=== PATIENT | male | born 1985 | race African-American/Black ===

== ENCOUNTER 2017-11-07 08:45 | Emergency (ER) | payer SELFPAY ==
[2017-11-07 09:41] LABS: #Eosinphils 0.2 thou/uL (0.0-0.7); #Lymphocytes 1.8 thou/uL (1.20-3.40); #Monocytes 0.4 thou/uL (0.11-0.59); #Neutrophils 1.4 thou/uL (1.40-6.50); %Basophils 0.7 % (0.0-1.0); %Eosinophils 5.2 % (0.0-10.0); %Lymphocytes 47.3 % (21.0-51.0); %Monocytes 10.4 % (0.0-10.0); %Neutrophils 36.4 % (42.0-75.0); Hemoglobin 16.1 g/dL (14.0-18.0); Mean Corpuscular HGB CONC 33.8 g/dL (32.0-36.0); Mean Corpuscular Hemoglobin 28.1 pg (27.0-31.0); Mean Platelet Volume 9.1 fL (7.4-10.4); Platelet Count 188 thou/uL (130-400); RBC Distribution Width 12.3 % (11.5-14.5); Red Blood Cell (RBC) Count 5.72 mill/uL (4.70-6.10); White Blood Cell (WBC) Count 3.8 thou/uL (4.8-10.8)
[2017-11-07 10:06] LABS: ALT (SGPT) 29 U/L (8-55); AST (SGOT) 34 U/L (5-34); Albumin 4.4 g/dL (3.5-5.0); Alkaline Phosphatase 63 U/L (40-150); Anion Gap 11 mmol/L (10-20); BUN (Urea Nitrogen) 9 mg/dL (8.9-20.6); CK (CPK) 1685 U/L (30-200); Calc. Creatinine Clearance 0 mL/min (70-130); Calcium 9.5 mg/dL (7.8-10.44); Carbon Dioxide 27 mmol/L (22-29); Chloride 104 mmol/L (98-107); Estimated GFR-MDRD Greater than 90; Globulin 2.9 g/dL (2.4-3.5); Glucose 97 mg/dL (70-105); Potassium 4.4 mmol/L (3.5-5.1); Protein, Total 7.3 g/dL (6.0-8.3); Sodium 138 mmol/L (136-145)
[2017-11-07 10:10] LABS: CKMB 4.1 ng/mL (0-6.6); Troponin I Less than 0.010 ng/mL (< 0.028)
--- NOTE | 2017-11-07 10:26 | CT ---
CT HEAD WITHOUT CONTRAST: Date: 11/07/17 Multiple axial tomograms obtained through the head without IV enhancement. INDICATION: Right-sided sensory deficit. FINDINGS: Ventricles have normal size and position. No evidence of intracranial mass, hemorrhage, edema, or inf arct. Visualized sinuses and mastoids are well aerated. IMPRESSION: No acute process identified. POS: [facility]
--- NOTE | 2017-11-07 12:35 | CT ---
CHEST CT ANGIOGRAM WITH 3D RENDERING ABDOMEN CT SCAN WITH 3D RENDERING: Date: 11/07/17 HISTORY: 32-year-old male with history of chest pain and neurologic deficits. FINDINGS: No evidence for aortic aneurysm or dissection. The central pulmonary arteries are free of thrombus. N o mediastinal mass or adenopathy. No pulmonary parenchymal process. No pleural effusion or pericardia l effusion. The abdominal aorta demonstrates no evidence for aneurysm or dissection. The celiac, supe rior mesenteric artery, renal arteries, and inferior mesenteric arteries are unremarkable. Normal viji earing appendix. No renal calculi or acute obstruction, or other significant acute process in the abdomen. There are status post cholecystectomy changes with some pneumobilia. IMPRESSION: Unremarkable CT angiogram chest and abdomen. No evidence for aortic dissection or aortic aneurysm. St atus post cholecystectomy with some pneumobilia. POS: [facility]
[2017-11-07 13:44] LABS: Troponin I 0.016 ng/mL (< 0.028)
[2017-11-07 13:53] LABS: Bilirubin Negative (Negative); Blood, Urine Negative (Negative); Clarity CLEAR (Clear); Glucose, Urine (Dipstick) Negative (Negative); Leukocyte Negative (Negative); Nitrite Negative (Negative); Protein, Urine (Dipstick) Negative (Neg-Trace); Urobilinogen 0.2 mg/dL (0.2-1.0)
[2017-11-07 14:03] LABS: Specific Gravity, Urine 1.056 (1.002-1.036)
[2017-11-07 14:07] LABS: Amphetamine Not Detected (NotDetected); Barbiturates Screen Not Detected (NotDetected); Benzodiazepine Screen Not Detected (NotDetected); Cocaine Metabolite Screen Not Detected (NotDetected); Medtox Control Line Valid? VALID (VALID); Medtox Reader # READER 1; Methadone Not Detected (NotDetected); Methamphetamine Not Detected (NotDetected); Opiate Screen Not Detected (NotDetected); Oxycodone Screen Not Detected (NotDetected); Phencyclidine (PCP) Not Detected (NotDetected); THC/Cannabinoid Screen Not Detected (NotDetected); Tricyclic Screen Not Detected (NotDetected)
[2017-11-07] MEDS ORDERED: ISOVUE-370 76%-LOCM 1 ML ONE (14:24)
== END 2017-11-07 14:20 | disposition home or self-care (01) ==
LOC: ERS 08:45
DX: R53.1 Weakness (principal); F32.9 Major depressive disorder, single episode, unspecified
CPT/HCPCS: 36415; 70450; 71275; 80053; 80306; 81003; 82553; 84484; 85025; 85379; 93005; 94760